=== PATIENT | male | born 1985 | race Caucasian/White ===

== ENCOUNTER 2020-03-12 18:22 | Emergency (ER) | payer SELFPAY ==
[2020-03-12] MEDS ORDERED: Lidocaine 1% with EPINEPHrine 1:100,000 20 ML MDV INFILT ONE (18:23)
--- NOTE | 2020-03-12 19:15 | EDM.PDOC ---
ED HPI GENERAL MEDICAL PROBLEM - General Stated Complaint: CUT LEG Time Seen by Provider: 03/12/20 19:15 Source of Information: Reports: Patient History Limitations: Reports: No Limitations - History of Present Illness INITIAL COMMENTS - FREE TEXT/NARRATIVE: 34-year-old male who was sharpening his hunting knife and it slipped and fell and he caught it and cut himself over his left medial distal thigh. This occurred approximately 6 PM tonight. He had quite a bit of bleeding from this area but it was controlled with direct pressure. There was no arterial bleeding. There is a stinging and sharp type pain and he rates as a 6/10. It is worse with palpation and with movement. He has normal sensation in his foot and leg. There were no other injuries. There are no other associated signs or symptoms. There are no other modifying factors. Onset: Today (6 PM) Duration: Constant Location: Reports: Lower Extremity, Left Quality: Reports: Sharp, Other (Stinging) Severity: Moderate Improves with: Reports: Rest Worsens with: Reports: Other (Palpation), Movement Context: Reports: Trauma Associated Symptoms: Reports: No Other Symptoms Treatments EMPLOYEE RELATIONS REPRESENTATIVE: Reports: Other (see below) (Nothing) L medial knee Pain Score (Numeric/FACES): 5 - Related Data Allergies Allergy/AdvReac Type Severity Reaction Status Date / Time No Known Allergies Allergy Verified 03/12/20 19:22 Home Meds: Home Meds Lisinopril/Hydrochlorothiazide [Lisinopril-Hctz 10-12.5 mg Tab] 1 tab DAILY 03/12/20 [History] Past Medical History Cardiovascular History: Reports: Hypertension - Past Surgical History HEENT Surgical History: Reports: Oral Surgery ([place] teeth extraction) Musculoskeletal Surgical History: Reports: Other (See Below) (Right biceps tendon repair) Social & Family History - Tobacco Use Tobacco Use Status *Q: Unknown Ever Used Tobacco (Nonsmoker) Tobacco Use Within Last Twelve Months: Smokeless Tobacco - Alcohol Use Alcohol Use Frequency: Weekly (Drinks alcohol about 3 times a week) - Living Situation & Occupation 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.) Review of Systems - Review of Systems Review Of Systems: See Below Constitutional: Reports: No Symptoms Eyes: Reports: No Symptoms Ears: Reports: No Symptoms Nose: Reports: No Symptoms Mouth/Throat: Reports: No Symptoms Respiratory: Reports: No Symptoms Cardiovascular: Reports: No Symptoms GI/Abdominal: Reports: No Symptoms Genitourinary: Reports: No Symptoms Musculoskeletal: Reports: No Symptoms Skin: Reports: Wound Neurological: Reports: No Symptoms Psychiatric: Reports: Anxiety ED EXAM, GENERAL - Physical Exam Exam: See Below Exam Limited By: No Limitations General Appearance: Alert, WD/WN, Anxious, Mild Distress Eye Exam: Bilateral Eye: EOMI, Normal Inspection Ears: Normal External Exam, Hearing Grossly Normal Ear Exam: Bilateral Ear: Auricle Normal Nose: Normal Inspection, Normal Mucosa, No Blood Throat/Mouth: Normal Inspection, Normal Oropharynx, Normal Voice, No Airway Compromise Head: Atraumatic, Normocephalic Neck: Normal Inspection, Supple, Non-Tender, Full Range of Motion Respiratory/Chest: No Respiratory Distress, Lungs Clear, Normal Breath Sounds, No Accessory Muscle Use, Chest Non-Tender Cardiovascular: Normal Peripheral Pulses, Regular Rate, Rhythm, No JVD Peripheral Pulses: 2+: Radial (L), Radial (R), Dorsalis Pedis (L), Dorsalis Pedis (R) GI/Abdominal: Normal Bowel Sounds, Soft, Non-Tender, No Mass Back Exam: Normal Inspection, Full Range of Motion Extremities: Normal Range of Motion, No Pedal Edema, Normal Capillary Refill, Other (Dorsalis pedis pulses are present, full and bilaterally symmetric.) Neurological: Alert, Oriented, CN II-XII Intact, Normal Cognition, No Motor/Sensory Deficits Skin Exam: Warm, Dry, Normal Color, No Rash, Wound/Incision (Laceration on left medial distal thigh chest. To the knee. 7 cm in length and it goes to the deep subcutaneous tissue. It does seem to note to the muscle it is anterior to the vascular area.) ED TRAUMA EXTREMITY PROCEDURES - Laceration/Wound Repair Left Medial Distal Thigh Appearance: Subcutaneous, Muscle, Mildly Contaminated Distal NVT: Neuro & Vascular Intact Anesthetic Type: Local Local Anesthesia - Lidocaine (Xylocaine): 2% with EPI Local Anesthetic Volume: Other (15 ml) Skin Prep: Saline Saline Irrigation (cc's): 600 Exploration/Debridement/Repair: Wound Explored, No Foreign Material Found Closed With: Sutures Suture Size: 4-0 # of Sutures: 7 (Combination of vertical mattress interrupted and simple suture.) Suture Type: Prolene, Running, Simple, Mattress Drain Placement: No Sterile Dressing Applied: Nurse Tetanus Status Addressed: Yes (Patient given Tdap) Complications: No Progress/Comments: Good dorsalis pedis pulse in the foot. Wound was deep but was anterior to the vascular area. Course - Vital Signs Last Recorded V/S: Last Vital Signs Temp 36.7 C 03/12/20 19:10 Pulse 80 03/12/20 21:10 Resp 18 03/12/20 21:10 BP 129/80 03/12/20 21:10 Pulse Ox 98 03/12/20 21:10 - Orders/Labs/Meds Meds: Medications Discontinued Medications Generic Name Dose Route Start Last Admin Trade Name Freq PRN Reason Stop Dose Admin Bacitracin 1 dose 03/12/20 19:18 03/12/20 21:44 Bacitracin Oint 1 Gm TOP 03/12/20 19:19 1 dose ONETIME ONE Administration Diphtheria/Tetanus/Acell Pertussis 0.5 ml 03/12/20 19:18 03/12/20 21:25 Boostrix IM 03/12/20 19:19 0.5 ml .ONCE ONE Administration - Re-Assessments/Exams Free Text/Narrative Re-Assessment/Exam: 03/12/20 20:35: Wound was repaired and patient tolerated this well without no Complications. The wound was deep but was anterior to the vascular area. I did discuss this with the patient and actually suggested that we do a CT angiogram of the left lower extremity to be sure that there was no arterial injury again (I doubt that this is the case). However, the patient refused this. He understands that this would rule out any arterial injury but he does not wish it to be performed. Departure - Departure Time of Disposition: 21:45 Disposition: Home, Self-Care 01 Condition: Good (Improved) Clinical Impression: Laceration of left leg Qualifiers: Encounter type: initial encounter Qualified Code(s): S81.812A - Laceration without foreign body, left lower leg, initial encounter - Discharge Information Instructions: VIS, DTaP (Diphtheria, Tetanus, Pertussis) Vaccine - CDC (07/28/2019), Laceration Care, Adult, [id number], Sutures, [place], or Adhesive Wound Closure, [id number] Referrals: PCP,None [Primary Care Provider] - Forms: ED Department Discharge Additional Instructions: Do not get the wound wet for 3 days. After 3 days, you may get the wound wet but do not immerse the wound in water until the sutures are out. Suture removal in 10 days. No strenuous use with the left leg for the next 2 weeks. For the next 4-5 days, you should use the Trevin wrap around the wound for a good pressure dressing. Avoid any prolonged walking for the next 3 days at least. You can take Tylenol as needed for pain. Back to the emergency department for marked increase in pain, redness, increased swelling, fever or any other concerning sign or s ymptom. Sepsis Event Note (ED) - Focused Exam Vital Signs: Vital Signs Temp Pulse Resp BP Pulse Ox 03/12/20 21:10 80 18 129/80 98 03/12/20 19:10 36.7 C 83 18 139/97 H 98
[2020-03-12] MEDS ORDERED: Bacitracin Oint 1 GM U/D Packet TOP ONE (19:18)
[2020-03-12] MEDS ORDERED: Diphtheria,Pertussis(Acell),Tetanus Vaccine 0.5 ML Syringe IM ONE (19:18)
== END 2020-03-12 21:28 | disposition home or self-care (01) ==
LOC: FB.ED 18:22
DX: S71.112A Laceration without foreign body, left thigh, initial encounter (principal); I10 Essential (primary) hypertension; Z79.899 Other long term (current) drug therapy; Z23 Encounter for immunization; W01.0XXA Fall on same level from slipping, tripping and stumbling without subsequent striking against object, initial encounter
CPT/HCPCS: 12002; 90471; 90715; 99282-25